=== PATIENT | male | born 1980 | race Native Hawaiian/Other Pacific Islander ===

== ENCOUNTER 2024-02-05 20:53 | Emergency (ER) | payer OTHER ==
[2024-02-05 21:17] VITALS: O2SAT 98
[2024-02-05 21:26] LABS: BASOPHILS # (AUTO) 0.1 10^3/uL (0.0-0.1); BASOPHILS % (AUTO) 0.8 %; EOSINOPHILS # (AUTO) 0.2 10^3/uL (0.0-0.7); EOSINOPHILS % (AUTO) 1.5 %; HCT - HEMATOCRIT 56.2 % (42.0-52.0); HGB - HEMOGLOBIN 18.5 g/dL (14.0-18.0); LYMPHOCYTES # (AUTO) 2.1 10^3/uL (1.5-3.5); MEAN CORPUSCULAR HEMOGLOBIN 26.4 pg (27.0-31.0); MEAN CORPUSCULAR HGB CONC 32.9 g/dL (32.0-36.0); MEAN CORPUSCULAR VOLUME 80.1 fL (80.0-94.0); MEAN PLATELET VOLUME 10.7 fL (7.4-11.4); MONOCYTES # (AUTO) 1.1 10^3/uL (0.0-1.0); MONOCYTES % (AUTO) 9.5 %; NEUTROPHILS # (AUTO) 8.3 10^3/uL (1.5-6.6); NEUTROPHILS % (AUTO) 69.9 %; PLT - PLATELET COUNT 192 10^3/uL (130-450); RED BLOOD COUNT 7.02 10^6/uL (4.70-6.10); RED CELL DISTRIBUTION WIDTH 18.3 % (12.0-15.0); WHITE BLOOD COUNT 11.9 x10^3/uL (4.8-10.8)
[2024-02-05 21:38] LABS: ALBUMIN 4.2 g/dL (3.2-5.5); ALBUMIN/GLOBULIN RATIO 1.4 (1.0-2.2); BILIRUBIN,TOTAL 0.9 mg/dL (0.2-1.0); CALCIUM 9.5 mg/dL (8.5-10.3); CREATININE 0.9 mg/dL (0.6-1.3); TOTAL PROTEIN 7.3 g/dL (6.4-8.9)
[2024-02-05 22:01] LABS: BILIRUBIN,URINE NEGATIVE (NEGATIVE); GLUCOSE, URINE (UA) NEGATIVE (NEGATIVE); KETONES,URINE (UA) NEGATIVE (NEGATIVE); LEUKOCYTE ESTERASE, URINE NEGATIVE (NEGATIVE); NITRITE,URINE NEGATIVE (NEGATIVE); OCCULT BLOOD,URINE NEGATIVE (NEGATIVE); PROTEIN,URINE 30 mg/dL (NEGATIVE); UROBILINOGEN,URINE 0.2 (NORMAL) E.U./dL (NORMAL)
--- NOTE | 2024-02-05 22:03 | ED Physician Documentation ---
PD HPI ABD PAIN - Stated complaint Stated Complaint: ABD PX - Chief complaint Chief Complaint: Abd Pain - History obtained from History obtained from: Patient, Family () - History of Present Illness Timing - onset: Enter time (0030), Last night Timing - duration: Hours Timing - details: Abrupt onset, Now resolved Quality: Sharp, Pain Location: RUQ Radiation: Lower back Improved by: Laying still Worsened by: Moving, Breathing, Position, Palpation Associated symptoms: Nausea. No: Vomiting, Diarrhea, Constipation Similar symptoms before: Has not had sx before Recently seen: Emergency Dept (at [facility]) - Additional information Additional information: 43 your year old Kimani Cline has a history of type 2 diabetes he is on Trulicity and he has an elevated BMI and is lost about 60 pounds in the last 5 months. He was seen at [facility] last night with a gallbladder attack noting a 1.6 cm stone in the gallbladder lodged against the neck and some question of cholecystitis. He was scheduled for surgery admitted to the hospital and the patient left AMA being anxious about the diagnosis and having resolution of his pain. He has come back to the emergency department today at the insistence of his primary care doctor and we are evaluating him now. Kimani tells me that yesterday he did not eat much he did have some fluids and was driving most of the day. He denies any vomiting states it was worse pain is ever had and it made him quite anxious.He indicates that his pain is now resolved. He states he feels normal Review of Systems Constitutional: denies: Fever Throat: denies: Sore throat Respiratory: denies: Cough GI: reports: Abdominal Pain. denies: Abdominal Swelling, Nausea, Vomiting, Constipation, Diarrhea PD PAST MEDICAL HISTORY - Past Medical History Past Medical History: No Cardiovascular: None Respiratory: None Neuro: None Endocrine/Autoimmune: None GI: None : None HEENT: None Psych: None Musculoskeletal: None Derm: None - Past Surgical History Past Surgical History: Yes - Allergies Allergies/Adverse Reactions: Allergies Allergy/AdvReac Type Severity Reaction Status Date / Time Sulfa (Sulfonamide Allergy Rash Verified 02/05/24 21:03 Antibiotics) - Social History Does the pt smoke?: Yes Smoking Status: Current every day smoker - Immunizations Immunizations are current?: Yes PD ED PE NORMAL - Vitals Vital signs reviewed: Yes (hypertensive ) - General General: Alert and oriented X 3, No acute distress, Well developed/nourished - HEENT HEENT: Atraumatic, PERRL, EOMI - Neck Neck: Supple, no meningeal sign, No bony TTP - Respiratory Respiratory: No respiratory distress - Abdomen Abdomen: Normal bowel sounds, Soft, Non tender, Non distended, No organomegaly - Back Back: No CVA TTP, No spinal TTP - Derm Derm: Normal color, Warm and dry, No rash - Extremities Extremities: No deformity, No edema - Neuro Neuro: Alert and oriented X 3, torch shearer 2-12 intact, No motor deficit, No sensory deficit, Normal speech Eye Opening: Spontaneous Motor: Obeys Commands Verbal: Oriented GCS Score: 15 - Psych Psych: Normal mood, Normal affect Results - Vitals Vitals: Vital Signs - 24 hr 02/05/24 02/05/24 20:56 21:46 Temperature 36.2 C L Heart Rate 79 72 Respiratory 20 Rate Blood Pressure 128/87 H O2 Saturation 98 Oxygen O2 Source Room air - Labs Labs: Laboratory Tests 02/05/24 02/05/24 02/05/24 21:19 21:19 21:54 WBC 11.9 H RBC 7.02 H Hgb 18.5 H Hct 56.2 H MCV 80.1 MCH 26.4 L MCHC 32.9 RDW 18.3 H Plt Count 192 MPV 10.7 Neut # (Auto) 8.3 H Lymph # (Auto) 2.1 [place] # (Auto) 1.1 H Eos # (Auto) 0.2 Baso # (Auto) 0.1 Absolute Nucleated RBC 0.00 Nucleated RBC % 0.0 Sodium 134 L Potassium 4.0 Chloride 102 Carbon Dioxide 24 Anion Gap 8.0 BUN 14 Creatinine 0.9 Estimated GFR (MDRD) 93 Glucose 94 Calcium 9.5 Total Bilirubin 0.9 AST 21 ALT 33 Alkaline Phosphatase 76 Total Protein 7.3 Albumin 4.2 Globulin 3.1 Albumin/Globulin Ratio 1.4 Lipase 33 Urine Color DARK YELLOW Urine Clarity CLEAR Urine pH 6.0 Ur Specific [place] >=1.030 H Urine Protein 30 H Urine Glucose (UA) NEGATIVE Urine Ketones NEGATIVE Urine Occult Blood NEGATIVE Urine Nitrite NEGATIVE Urine Bilirubin NEGATIVE Urine Urobilinogen 0.2 (NORMAL) Ur Leukocyte Esterase NEGATIVE Urine RBC None Seen Urine WBC 0-3 Ur Squamous Epith Cells RARE Squamous Urine Bacteria None Seen Ur Microscopic Review INDICATED Urine Culture Comments NOT INDICATED Procedures - Bedside sono Bedside sono by EMP: With the use of POCUS the gallbladder is imaged it is sonographically nontender the gallbladder wall thickness is 4 mm the stone imaged is shadowing, singular and large. - IVC sono (time) 2019 Bedside IVC sono: IVC measures (cm) (1.19), IVC collapsed c insp (cm) (complete), Dehydration (est 1+liter deficit) PD Medical Decision Making - ED course Complexity details: reviewed results, re-evaluated patient, considered differential, d/w patient, d/w family Reviewed Lab Results: We reviewed a complete blood cell count showing an elevated white blood cell count of 11.9 and elevated hemoglobin and hematocrit at 18-1/2 and 56.2. We do not have complete comparisons on this patient but he indicates that he has had elevated H&H related to testosterone use and he has had bloodletting done previously. Platelets are normal at 190,000 chemistries are entirely normal normal electrolytes normal kidney and liver function normal lipase urinalysis shows concentrated urine consistent with the level of dehydration found on interrogation of the IVC with POCUS. My interpretation of these laboratory studies indicate the patient has not elevated H&H with a prior explanation he does have an elevated white blood cell count potentially elevated only because of dehydration or stress. ED course: 43-year-old male presents to the emergency department pain-free after ga llbladder attack last night. Today we were able to evaluate his biochemical profile he has no evidence of obstruction the stone he has a solitary and large and I do not believe there is any evidence of cholecystitis now. I consulted our surgeon Dr. Bautista who agreed with my assessment and recommended outpatient follow-up with low-fat diet. Departure - Departure Disposition: 01 Home, Self Care Clinical Impression: Cholelithiasis Qualifiers: Cholelithiasis location: gallbladder Cholecystitis presence: without cholecystitis Biliary obstruction: without biliary obstruction Qualified Code(s): K80.20 - Calculus of gallbladder without cholecystitis without obstruction Condition: Stable Instructions: ED Abdominal Pain Gallstone Poss, ED Diet Low Fat Follow-Up: Kaz Fisher MD [Provider Admit Priv/Credential] - Comments: Kimani, today it looks like you have a solitary stone in your gallbladder that is likely a result of rapid weight loss and these episodes of pain are likely to continue especially at unexpected times and the recommendation is to have the gallbladder removed. In the meantime the recommendation is to use a low fat or no fat diet and to follow-up with the surgical clinic.We are here 24 hours a day if you have another episode come to see us for pain control. Forms: PCP List
[2024-02-05 22:04] LABS: CLARITY,URINE CLEAR (CLEAR)
[2024-02-05 22:16] LABS: BACTERIA,URINE None Seen /HPF (None Seen); RBC,URINE None Seen /HPF (0-5); SQUAMOUS EPITHELIAL CELL,UR RARE Squamous (<= Few); WBC,URINE 0-3 /HPF (0-3)
[2024-02-05 23:03] VITALS: BP 125/84
== END 2024-02-05 23:01 | disposition home or self-care (01) ==
LOC: ED 20:53
DX: K80.20 Calculus of gallbladder without cholecystitis without obstruction (principal); E11.9 Type 2 diabetes mellitus without complications; F17.200 Nicotine dependence, unspecified, uncomplicated
CPT/HCPCS: 36415; 80053; 81001; 81003; 83690; 85025; 87086; 99283; 99284